=== PATIENT | female | born 1965 | race Caucasian/White ===

== ENCOUNTER 2023-06-25 14:07 | Emergency (ER) | payer OTHER, SELFPAY ==
[2023-06-25 14:51] VITALS: BP 140/89; PULSE 76; RESP 16; TEMP 36.4; O2SAT 100
--- NOTE | 2023-06-25 15:34 | ED.EAR ---
HPI - Ear Problem General Chief complaint: Ear Stated complaint: CLOGGED EAR Time Seen by Provider: 06/25/23 15:23 Source: patient, family, RN notes reviewed and old records reviewed Mode of arrival: ambulatory Limitations: no limitations History of Present Illness HPI Narrative: 58 year old female who presents to [facility] accompanied by spouse with complaints of right ear feeling clogged with decreased hearing out of her right ear since returning from vacation in [place] early in week. Patient reports that she snorkeled while in [place], had ear plus in and also was splashed by large amount of water. Patient reports that she tried OTC ear wax removal kit without success, has pressure feeling in her right ear rates discomfort at 5/10. MD Complaint: decreased hearing Location: right ear Severity: moderate Discharge from ear: Reports no Treatment prior to arrival: attempt at ear wax removal Related Data Home Medications Medication Instructions Recorded Confirmed No Home Medications 06/25/23 06/25/23 Allergies Allergy/AdvReac Type Severity Reaction Status Date / Time No Known Allergies Allergy Unknown Verified 06/25/23 14:46 Review of Systems Review of Systems: CONSTITUTIONAL: Denies malaise, chills, sweats, or fever. EYES: Denies visual changes, redness, or discharge. ENT: Reports no rhinorrhea, congestion, sinus pain, positive for right otalgia with pressure and decreased hearing , denies sore throat. CARDIOVASCULAR: Denies chest pain, palpitations, or edema. RESPIRATORY: Reports no cough.? Denies dyspnea. GASTROINTESTINAL: Denies abdominal pain, nausea, vomiting, diarrhea SKIN: Denies rash or itching. MUSCULOSKELETAL: Denies myalgia. NEUROLOGIC: Denies headache. All systems reviewed & are unremarkable except as noted in HPI and below PMFSH Past Medical History Medical History (Updated 06/27/23 @ 10:33 by Shannan Edward NP) History of sinus problem Surgical History Surgical History (Updated 06/27/23 @ 10:31 by Shannan Edward NP) H/O laparoscopy removal of left fallopian tube History of dilatation and curettage Previous section Family History Family History (Updated 06/27/23 @ 10:35 by Shannan Edward NP) Grandparent Breast cancer Diabetes mellitus Father Lung cancer Social History Social History (Updated 06/27/23 @ 10:29 by Shannan Edward NP) Smoking status: Never smoker Alcohol intake: current Alcohol use details: social Substance use type: does not use Living arrangements: with family Gender identity (if verbalized by the patient): Female Comments At time of signature, agree with nursing past medical, surgical, social and family history. There is no relevant family history pertinent to the presenting complaint Exam Narrative: GENERAL: Well-appearing, well-nourished, and in no acute distress. HEAD: Normocephalic EYES: PERRLA, conjunctivae clear ENT: Nares clear, turbinates edematous and erythematous, clear discharge. Mucous membranes moist.Right TM obscured by ear wax once cleansed by irrigation Right TM normal with normal light reflex, Left TM pearly merchant with dull light reflex ; no tragal tenderness. Oropharynx erythematous without lesions. Tonsils not enlarged and without exudate, no drooling, no hoarseness, no trismus, uvula midline. NECK: Supple. No lymphadenopathy CHEST: Clear to auscultation, breath sounds equal. No wheezing, rhonchi, rales, or stridor. No respiratory distress, speaks in full sentences.no cough noted SAO2 100% on room air HEART: Regular rate and rhythm. No murmur heard. SKIN: Warm, dry, no rash. NEURO: Alert and oriented x3. PSYCH: Normal mood and affect Course Course Emergency Course: Patient is aware of diagnosis, understands and agrees to treatment plan.? Anticipatory guidance given.? Patient agrees to follow-up as directed and is aware of reasons to seek care at the emergency dep
== END 2023-06-25 15:50 | disposition home or self-care (01) ==
PROVIDERS: Emergency Provider Registered Nurse; PCP Physician Assistant
DX: H61.21 Impacted cerumen, right ear (principal)
CPT/HCPCS: 69209; 99212; G0463